=== PATIENT | male | born 1985 | race Caucasian/White ===

== ENCOUNTER → 2021-08-16 | Outpatient (REF) | payer SELFPAY | END | disposition home or self-care (01) | LOC: OLS.AHA 04:27 | PROVIDERS: Visit Provider Family Medicine | DX: E72.20 Disorder of urea cycle metabolism, unspecified (principal); F25.9 Schizoaffective disorder, unspecified; E78.2 Mixed hyperlipidemia; Z79.899 Other long term (current) drug therapy | CPT/HCPCS: 82140 ==

== ENCOUNTER → 2021-11-03 | Outpatient (REF) | payer SELFPAY | END | disposition home or self-care (01) | LOC: OLS.AHA 08:34 | PROVIDERS: Referring Provider Family Medicine; Visit Provider Family Medicine | DX: E72.20 Disorder of urea cycle metabolism, unspecified (principal) | CPT/HCPCS: 82140 ==